=== PATIENT | female | born 1995 | race Caucasian/White ===

== ENCOUNTER 2016-12-13 06:27 | Emergency (ER) | payer BC ==
[2016-12-13 06:33] VITALS: BP 162/102; PULSE 98; RESP 18; TEMP 98.1; O2SAT 97
--- NOTE | 2016-12-13 06:55 | EDPHY ---
H & P Stated Complaint: pt says she thinks she has a tampon that she can't find or remove from vag Time Seen by Provider: 12/13/16 06:54 HPI/ROS: HPI The patient presents with retained tampon which she inserted last night at about 630. She has not been able to retrieve it this morning. She is having mild discomfort in her vaginal area.. REVIEW OF SYSTEMS Constitutional: No fever, no chills. Neurological: No headache. PMHx: Healthy Soc Hx: College student PHYSICAL General Appearance: Alert, no distress Eyes: Pupils equal and round no pallor or injection ENT, Mouth: Mucous membranes moist Respiratory: Breathing comfortably Pelvic: There is a tampon in the vaginal vault, cervix appears normal Neurological: A&O, moves all extremities Psychiatric: Patient is oriented X 3, there is no agitation Source: Patient Exam Limitations: No limitations - Medical/Surgical History Hx Asthma: No Hx Chronic Respiratory Disease: No Hx Diabetes: No Hx Cardiac Disease: No Hx Renal Disease: No Hx Cirrhosis: No Hx Alcoholism: No Hx HIV/AIDS: No Hx Splenectomy or Spleen Trauma: No Other PMH: DENIES - Social History Smoking Status: Never smoked Constitutional: Initial Vital Signs Temperature (C) 36.7 C 12/13/16 06:31 Heart Rate 98 12/13/16 06:31 Respiratory Rate 18 12/13/16 06:31 Blood Pressure 162/102 H 12/13/16 06:31 O2 Sat (%) 97 12/13/16 06:31 O2 Delivery Mode Room Air Allergies/Adverse Reactions: No Known Allergies Allergy (Verified 12/13/16 06:34) Home Medications: Medication Instructions Recorded Microgestin 01/21/16 Medical Decision Making Differential Diagnosis: This is a 21-year-old female with retained tampon, placed about 12 hours ago into the vaginal vault. I was able to remove it using speculum and ring forceps. The patient had no vaginal discharge or signs of trauma. Risk for toxic shock syndrome is incredibly low. She will be discharged home. Departure - Departure Disposition: Home, Routine, Self-Care Clinical Impression: Vaginal foreign body Qualifiers: Encounter type: initial encounter Qualified Code(s): T19.2XXA - Foreign body in vulva and vagina, initial encounter Condition: Good Instructions: Vaginal Foreign Body (ED) Referrals: NONE *PRIMARY CARE P,. [Primary Care Provider] - As per Instructions
== END 2016-12-13 07:14 | disposition home or self-care (01) ==
DX: T19.2XXA Foreign body in vulva and vagina, initial encounter (principal); X58.XXXA Exposure to other specified factors, initial encounter